=== PATIENT | female | born 1955 | race Caucasian/White ===

== ENCOUNTER 2023-07-27 18:32 | Emergency (ER) | payer OTHER, SELFPAY ==
[2023-07-27 18:34] VITALS: BP 156/71
--- NOTE | 2023-07-27 19:17 | ED.GENMED ---
History of Present Illness
General
Chief Complaint: Fall
Time Seen by Provider: 07/27/23 19:05
Travel History
Have you had any contact with someone who has COVID-19?: No
Do you have any symptoms of coronavirus? Fever > 100 degrees, chills, cough, shortness of breath, sore throat, loss of taste or smell, muscle aches, or headache?: No
History of Present Illness
History of Present Illness:
67-year-old female who presents to the emergency department for evaluation of left hand pain and multiple abrasions to bilateral hands as well as the face after mechanical fall. Tripped off [place] curb [place] a gas station. Denies any loss of
consciousness. Primary location of pain is to the left medial hand. Last tetanus was within the past 5 years
Past History
Past History
ED Past Medical History: Hypercholesterolemia
ED Past Surgical History: Gynecological
Social History
Alcohol: None
Drug: None
Review of Systems
Review of Systems
Allergies reviewed?: Yes
All Other Systems: ROS reviewed and negative except as documented in HPI and ROS
Phy Exam
Physical Exam
Physical Exam:
GEN: Well appearing, NAD, WDWN
HEENT: Oral mucosa moist, no scleral icterus. Abrasion to the midline upper lip, no intraoral laceration, teeth are stable
Cardiac: Regular rate
Lung: No respiratory distress, no tachypnea
MSK: No gross deformity or injuries
Skin: Good color, no pallor or jaundice, no rashes. Numerous superficial abrasions to bilateral dorsal hands
Neuro: AO x3, moves all extremities freely
Psych: Calm, cooperative
Course
Orders/Labs/Results
Orders:
Orders
07/27/23 18:39
Hand, Left 3 View [CR Hand - Left Min 3 Views] Urgent
Comment:
Reason For Exam: fall, pain
Vital Signs
Initial and Last Documented VS:
Initial Vital Signs
Temp Pulse Resp BP Pulse Ox
98.2 F 66 18 156/71 100
07/27/23 18:34 07/27/23 18:34 07/27/23 18:34 07/27/23 18:34 07/27/23 18:34
Last Documented Vital Signs
Temp Pulse Resp BP Pulse Ox
98.2 F 66 18 156/71 100
07/27/23 18:34 07/27/23 19:28 07/27/23 18:34 07/27/23 19:28 07/27/23 18:34
MDM/Problems Addressed
MDM/Problems Addressed:
Patient is clinically well, numerous abrasions to the face and hands. Left hand x-ray independently interpreted by me as negative for acute osseous abnormality. She is neurologically intact with no significant signs of cranial trauma to suggest
need for CT of the head particular given her lack of antiplatelet or anticoagulant use
*Critical Care Note
Total Time (30-74mins, 75-104mins- exclusive of procedures): Not Applicable
ED Attending Note
-
Portions of this chart may have been created with voice recognition software.� Occasional wrong word or��sound alike� substitutions may have occurred due to the inherent limitations of voice recognition software.
Discharge Plan
Departure
Patient Disposition: Home (Routine Discharge)
Date of Disposition: 07/27/23
Time of Disposition: 19:21
Patient with high blood pressure during this ER visit?: Yes
Discharge Problem:
Abrasion of multiple sites of hand and finger, Abrasion of lip, Contusion of left hand
Instructions: Wound Care (DC), Skin Abrasions (DC)
Prescriptions:
No Action
hydrocodone-acetaminophen 1 TABLET tablet
1 tab PO Q4HPRN PRN (Reason: pain) Qty: 12 0RF
Interventions
Interventions:
*Risk Screen - Suicide Last Done: 07/27/23 19:17
*General Assessment Last Done: 07/27/23 19:17
*Neglect/Abuse Screening Last Done: 07/27/23 19:17
*ED COVID-19 Vaccine History Last Done: 07/27/23 19:17
*Nursing Disposition Last Done: 07/27/23 19:28
ED-Musculoskeletal Assessment Last Done: 07/27/23 19:13
ED- Neurological Assessment Last Done: 07/27/23 19:13
ED-Skin Assessment Last Done: 07/27/23 19:13
Discharge Date and Time
Discharge Date/Time: 07/27/23 19:29
[2023-07-27 19:28] VITALS: BP 156/71
== END 2023-07-27 19:29 | disposition home or self-care (01) ==
LOC: EMR 18:32
PROVIDERS: EMERGENCY PHYSICIAN Emergency Medicine; FAMILY PHYSICIAN Family Medicine
DX: S00.511A Abrasion of lip, initial encounter (principal); S60.512A Abrasion of left hand, initial encounter; S60.511A Abrasion of right hand, initial encounter; S60.222A Contusion of left hand, initial encounter; W01.0XXA Fall on same level from slipping, tripping and stumbling without subsequent striking against object, initial encounter; E78.00 Pure hypercholesterolemia, unspecified
CPT/HCPCS: 99283; 73130